=== PATIENT | female | born 1990 | race Caucasian/White ===

== ENCOUNTER 2023-02-20 16:15 | Emergency (ER) | payer OTHER, MEDICAID, SELFPAY ==
--- NOTE | ~2023-02-20 | CT_ITS ---
EXAMINATION: CT cervical spine wo con DATE: 02/20/2023 17:40 INDICATION: neck pain TECHNIQUE: Computed tomography (CT) of the cervical spine was performed without intravenous contrast. Automated exposure control and iterative reconstruction technique were employed. The dose-length pro duct was 506.58 mGy-cm. COMPARISON: None. FINDINGS: Vertebral Body Alignment: Intact. Cervical straightening as can occur with positioning and muscle spa sm. Craniocervical and atlantoaxial alignment: Mild degenerative change. Alignment intact. Osseous structures/fracture: No evidence of a lytic or blastic process in the visualized spine. No e vidence of acute fracture. Cervical soft tissues: The paraspinal soft tissues planes are maintained. Degenerative changes: Mild degenerative changes, without severe neural foraminal or central canal arley rowing. IMPRESSION: No acute fracture or traumatic malalignment in the cervical spine. Reviewed, dictated and finalized at location K.
[2023-02-20 16:17] VITALS: BP 150/91; PULSE 92; RESP 18; TEMP 36.4; O2SAT 100
--- NOTE | 2023-02-20 18:08 | ED.GENADULT ---
HPI - General Adult General Chief complaint: Neck Pain/Injury Stated complaint: neck pain Time Seen by Provider: 02/20/23 16:52 Source: patient Mode of arrival: ambulatory Limitations: no limitations History of Present Illness HPI narrative: This is a 32-year-old female who presents to the ED with chief complaint of left-sided neck pain ongoing for the past week. States it is much worse today. She has been seen by the ER and primary care previously and had no relief with ibuprofen, Toradol, Tylenol or muscle relaxers. States she is here today because she just wants some relief. States it starts in the left occiput and radiates down into the left trapezius distribution. Denies any injuries. 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 Denies any numbness or weakness, fevers, chills, sore throat. Related Data Allergies Allergy/AdvReac Type Severity Reaction Status Date / Time No Known Allergies Allergy Verified 06/03/18 07:33 [facility] Social History Social History Smoking status: Current every day smoker Alcohol intake: current Exam Narrative: GENERAL: Well-appearing, well-nourished, and in no acute distress. HEAD: Normocephalic, atraumatic. EYES: PERRLA and EOMI. ENT: Nares clear, no rhinorrhea or epistaxis. Mucous membranes moist. Oropharynx without tonsillar hypertrophy exudate or other lesions. NECK: Supple. No adenopathy or masses. CHEST: No respiratory distress. Clear to auscultation. No wheezes rales or rhonchi HEART: Regular rate and rhythm. No murmur heard. Normal peripheral pulses. ABDOMEN: Soft, nontender, nondistended, normal active bowel sounds. MSK: Mild left-sided paraspinal tenderness to the cervical spine and left trapezius distribution. MSK exam is otherwise benign. Normal range of motion. No edema. SKIN: Warm, dry, no rash. NEURO: Alert and oriented x3. No focal deficits. 5 out of 5 strength and sensation in the bilateral upper extremities. PSYCH: Normal mood and affect. Course Vital Signs Vital signs: Vital Signs Temperature 97.6 F 02/20/23 16:17 Pulse Rate 92 02/20/23 16:17 Respiratory Rate 18 02/20/23 16:17 Blood Pressure 150/91 H 02/20/23 16:17 Pulse Oximetry 100 06/20/23 16:17 Oxygen Delivery Room Air 02/20/23 16:17 Temperature 98.0 F 02/20/23 19:11 Pulse Rate 78 02/20/23 19:11 Respiratory Rate 16 02/20/23 19:11 Blood Pressure 136/78 02/20/23 19:11 Pulse Oximetry 100 02/20/23 19:11 Oxygen Delivery Room Air 02/20/23 16:17 Medical Decision Making MDM Narrative Medical decision making narrative: This is a 32-year-old female who presents to the ED with chief complaint of left-sided neck pain ongoing for greater than a week. Vitals are normal. Exam is overall benign. She does have left-sided paraspinal tenderness and tenderness throughout the entire upper trapezius distribution. Her symptoms certainly seem to be musculoskeletal. CT was ordered and does not show any acute findings. She has failed multiple dlop-rbo-mpybujb treatments so I am adding a steroid prescription today. She improved moderately with Toradol Compazine and Benadryl. She will be discharged in stable condition. Return precautions given and supportive measures for home discussed. Patient is understanding and agreeable with plan for discharge and follow-up with her PCP. She also has physical therapy set up for this problem as well. Vital Signs Vital Signs: Vital Signs Temperature 97.6 F 02/20/23 16:17 Pulse Rate 92 02/20/23 16:17 Respiratory Rate 18 02/20/23 16:17 Blood Pressure 150/91 H 02/20/23 16:17 Pulse Oximetry 100 02/20/23 16:17 Oxygen Delivery Room Air 02/20/23 16:17 Temperature 98.0 F 02/20/23 19:11 Pulse Rate 78 02/20/23 19:11 Respiratory Rate 16 02/20/23 19:11 Blood Pressure 136/78 02/20/23 19:11 Pulse Oximetry 100 02/20/23 19:11 Oxygen Delivery Room Air 02/20/23 16:17
[2023-02-20 18:11] VITALS: BP 142/86; PULSE 80; RESP 16; TEMP 36.8; O2SAT 100
[2023-02-20] MEDS: KETOROLAC 15 MG/ML VIAL (*BKC) IV PUSH (18:31)
[2023-02-20] MEDS: diphenhydrAMINE HCl INJ 50 MG/ML VIAL 25 MG IV PUSH (18:31)
[2023-02-20] MEDS: PROCHLORPERAZINE EDISYLATE 10 MG/2 ML VIAL IV PUSH (18:31)
[2023-02-20 19:11] VITALS: BP 136/78; PULSE 78; RESP 16; TEMP 36.7; O2SAT 100
== END 2023-02-20 19:40 | disposition home or self-care (01) ==
PROVIDERS: Emergency Provider Physician Assistant; PCP Student in an Organized Health Care Education/Training Program
DX: S16.1XXA Strain of muscle, fascia and tendon at neck level, initial encounter (principal); F17.200 Nicotine dependence, unspecified, uncomplicated; X58.XXXA Exposure to other specified factors, initial encounter
CPT/HCPCS: 72125; 96374; 96375; 99284; J0780; J1200; J1885

== ENCOUNTER 2023-06-02 10:35 | Emergency (ER) | payer OTHER, SELFPAY ==
[2023-06-02 10:47] VITALS: BP 135/87; PULSE 72; RESP 16; TEMP 36.4; O2SAT 98
--- NOTE | 2023-06-02 11:27 | ED.URI ---
HPI - URI/Sore Throat General Chief Complaint: Ear Stated Complaint: Ear pain Time Seen by Provider: 06/02/23 11:27 Source: patient, RN notes reviewed and old records reviewed Mode of arrival: ambulatory Limitations: no limitations History of Present Illness HPI Narrative: 32-year-old female presents to the [facility] with complaints of right ear pain. States that she has drainage normally out of the ear. States she had tubes placed approximately [address] Segura Patient states that she takes Flonase daily, Beth Drew Reports pressure. Related Data Home Medications Medication Instructions Recorded Confirmed fenofibrate nanocrystallized 145 145 mg PO DAILY 06/02/23 06/02/23 mg tablet metformin 500 mg tablet 500 mg PO DIRECTED 06/02/23 06/02/23 sertraline 100 mg tablet 50 mg PO DAILY 06/02/23 06/02/23 Allergies Allergy/AdvReac Type Severity Reaction Status Date / Time No Known Allergies Allergy Verified 06/03/18 07:33 Review of Systems Review of Systems: All systems reviewed & are unremarkable except as noted in HPI and below Constitutional: Constitutional: Reports no additional constitutional complaints Eyes: Eyes: Reports no additional eye complaints ENT: Reports as per HPI Cardiovascular: Cardiovascular: Reports no additional cardiovascular complaints, Denies chest pain and Denies dyspnea Respiratory: Respiratory: Reports no additional respiratory complaints, Denies chest congestion, Denies cough and Denies dyspnea Gastrointestinal: Gastrointestinal: Reports no additional gastrointestinal complaints, Denies abdominal pain, Denies nausea and Denies vomiting Musculoskeletal: Musculoskeletal: Reports no additional musculoskeletal complaints Integumentary/Breasts: Skin/Breast: Reports system reviewed and no additional complaints, except as docu Neurologic: Reports system reviewed and no additional complaints, except as documented Psychiatric: Psychiatric: Reports no additional psychiatric complaints Allergic/Immunologic: Allergic/Immunologic: Reports no additional allergic/immunologic complaints PMFSH Past Medical History Medical History (Updated 06/02/23 @ 20:03 by Sabi Hensley APRN) Anxiety and depression Body mass index [BMI] 37.0-37.9, adult (08/07/17) Cubital tunnel syndrome on left Ganglion cyst High cholesterol Surgical History Surgical History (Updated 06/02/23 @ 20:03 by Sabi Hensley APRN) History of breast augmentation Social History Social History (Reviewed 09/30/23 @ 20:02 by YAQUELIN Cintron Smoking status: Current every day smoker Alcohol intake: current Comments At the time of my signature, I reviewed and agree with the nursing past medical, surgical, social, and family history. There is no relevant family history pertinent to the patient complaint. Exam Const: General: cooperative, healthy appearing, comfortable, no acute distress, well developed, alert and well nourished Nutritional Appearance: well nourished and obese Orientation/consciousness: patient oriented x3 Limitations: no limitations HENMT: Head: normal to inspection Ears: hearing grossly normal bilaterally, external ears normal, TM normal on the left, Abnormal EAC present erythema, EAC tenderness on the right and otic discharge purulent on the right and TM abnormal (Partial upper TM for visualized, no erythema. Unsure of tube or perforatio) Face/Nose/Sinus: Normal external nose present, Normal nares present, Normal nasal mucous membranes and turbinates present, normal facial exam and face symmetric Face and sinus: normal facial exam and face symmetric Mouth: Yes Normal oral and palatal mucosa present, Yes lip normal and Yes moist mucous membranes Throat: posterior oropharynx normal and uvula midline Eyes: General: appearance normal, both eyes and all related structures Alignment and Position: alignment normal Periorbital: periorbital findings normal Pupils: Equal, round and re
== END 2023-06-02 11:52 | disposition home or self-care (01) ==
PROVIDERS: Emergency Provider Nurse Practitioner
DX: H60.501 Unspecified acute noninfective otitis externa, right ear (principal); F17.200 Nicotine dependence, unspecified, uncomplicated; Z79.84 Long term (current) use of oral hypoglycemic drugs; Z79.899 Other long term (current) drug therapy
CPT/HCPCS: 99213; G0463

== ENCOUNTER 2023-11-18 08:33 | Emergency (ER) | payer OTHER, BC, MEDICAID, SELFPAY ==
[2023-11-18 08:49] VITALS: BP 119/79; PULSE 93; RESP 16; TEMP 36.8; O2SAT 99
--- NOTE | 2023-11-18 09:13 | ED.URI ---
HPI - URI/Sore Throat General Chief Complaint: Upper Respiratory Infection Stated Complaint: Sinus Infection Symptoms Time Seen by Provider: 11/18/23 09:13 Source: patient Mode of arrival: ambulatory Limitations: no limitations History of Present Illness HPI Narrative: 33-year-old female presents complaint of sinus congestion, sinus pressure, postnasal drainage, coughing, right ear pain and low-grade fever the past 4 days. Patient reports that she has had off and on sinus congestion for the past 3-4 weeks. Saw her primary care physician and was given a Z-Blair and prednisone. Reports that she felt better for a short period of time before symptoms started again. Is currently not taking any psze-kat-drszgar medications to treat her symptoms. All systems reviewed and negative except as noted above. Related Data Home Medications Medication Instructions Recorded Confirmed fenofibrate nanocrystallized 145 145 mg PO DAILY 06/02/23 11/18/23 mg tablet sertraline 100 mg tablet 100 mg PO DAILY 06/02/23 11/18/23 bupropion HCl 300 mg 24 hr tablet, 300 mg PO DIRECTED 11/18/23 11/18/23 extended release Allergies Allergy/AdvReac Type Severity Reaction Status Date / Time No Known Allergies Allergy Verified 11/18/23 09:01 Review of Systems Review of Systems: CONSTITUTIONAL: Denies fever, chills, or sweats. Reports fatigue. EYES: Denies visual changes, redness, or discharge. ENT: Reports rhinorrhea, congestion, sinus pressure, right ear pain. Denies sore throat CARDIOVASCULAR: Denies chest pain, palpitations, or edema. RESPIRATORY: Reports cough. Denies dyspnea. GASTROINTESTINAL: Denies abdominal pain, nausea, vomiting, or diarrhea. GENITOURINARY: Denies dysuria or hematuria. SKIN: Denies rash or itching. MUSCULOSKELETAL: Denies back pain, joint pain, or myalgia. NEUROLOGIC: Denies headache, numbness, or weakness. PSYCHIATRIC: Denies anxiety or depression. All other systems reviewed are negative, except as documented in HPI. [facility] Past Medical History Medical History Anxiety and depression Body mass index [BMI] 37.0-37.9, adult (08/07/17) Cubital tunnel syndrome on left Ganglion cyst High cholesterol Surgical History Surgical History History of breast augmentation Social History Social History Smoking status: Current every day smoker Alcohol intake: current Comments At time of signature, agree with nursing past medical, surgical, social and family history. There is no relevant family history pertinent to the presenting complaint. Exam Narrative: GENERAL: This is a well-nourished, well-developed patient, in no apparent distress. HEAD: normocephalic, atraumatic. EYES: PERRL. Sclera clear/white. Vision is grossly intact. EARS: External ears normal, auditory canals clear and without drainage, clear fluid to left TM. Right TM is erythematous with dull light reflex. No perforation bilaterally. hearing grossly intact. NOSE: External nose normal with no obvious nasal discharge, nares without redness, no rhinorrhea. Moderate congestion. Bilateral maxillary sinus tenderness on palpation. THROAT: Mucous membranes moist, erythema with postnasal drainage. NECK: Neck supple, non-tender without lymphadenopathy, masses or thyromegaly. CARDIOVASCULAR: Regular rate and rhythm without murmurs, gallops, or rubs. RESPIRATORY: Clear to auscultation. Breath sounds equal bilaterally. No wheezes, rales, or rhonchi. SKIN: warm, Dry, intact with no suspicious lesions or rash, good texture and turgor. NEURO: awake, alert, and oriented to person, place and time. There were no obvious focal neurologic abnormalities. EXTREMITIES: No joint tenderness, effusion, or edema noted. Course Course Level of Care: Express Care Visit Vital Signs Vital
== END 2023-11-18 09:23 | disposition home or self-care (01) ==
PROVIDERS: Emergency Provider Nurse Practitioner Family; PCP Family Medicine
DX: J06.9 Acute upper respiratory infection, unspecified (principal); R05.9 Cough, unspecified; H66.91 Otitis media, unspecified, right ear; F17.200 Nicotine dependence, unspecified, uncomplicated; E78.00 Pure hypercholesterolemia, unspecified; F41.9 Anxiety disorder, unspecified; F32.A Depression, unspecified
CPT/HCPCS: 99213; G0463

== ENCOUNTER 2024-04-11 15:01 | Outpatient (CLI) | payer OTHER, MEDICAID, SELFPAY ==
--- NOTE | ~2024-04-11 | CT_ITS ---
EXAMINATION: CT abdomen pelvis w con DATE: 04/11/2024 15:26 INDICATION: Left lower quadrant abdominal pain. TECHNIQUE: Computed tomography (CT) of the abdomen and pelvis was performed with 100 mL Omnipaque 350 intravenous contrast. Automated exposure control and iterative reconstruction technique were employe d. The dose-length product was 1521.40 mGy-cm. COMPARISON: CT abdomen and pelvis 03/17/2016 FINDINGS: The visualized portions of the lung bases demonstrate mild atelectasis. No pleural effusion . The heart size is normal. No pericardial effusion. Partially visualized is a left breast implant. T he liver, gallbladder, spleen, pancreas, adrenal glands, and kidneys are normal. There are no dilated loops of bowel. The appendix is normal. There is fat stranding around epiploic appendage of the sigm oid colon, consistent with epiploic appendagitis. There are no pathologically enlarged lymph nodes. T here is physiologic fluid in the pelvis. There is moderate thoracic spondylosis and mild lumbar spond ylosis. IMPRESSION: 1. Epiploic appendagitis of the sigmoid colon. Reviewed, dictated and finalized at location A.
== END 2024-04-11 15:02 | disposition home or self-care (01) ==
LOC: ANHIMG 15:02
PROVIDERS: PCP Family Medicine; Visit Provider Surgery
DX: R10.32 Left lower quadrant pain (principal); K63.89 Other specified diseases of intestine
CPT/HCPCS: 74177; Q9967

== ENCOUNTER 2024-07-22 15:33 | Emergency (ER) | payer OTHER, MEDICAID, SELFPAY ==
[2024-07-22 15:42] VITALS: BP 133/87; PULSE 87; RESP 15; TEMP 36.4; O2SAT 98
--- NOTE | 2024-07-22 15:48 | ED.URI ---
HPI - URI/Sore Throat General Chief Complaint: Upper Respiratory Infection Stated Complaint: Sinus Infection Symptoms Time Seen by Provider: 07/22/24 15:45 Source: patient and RN notes reviewed Mode of arrival: ambulatory Limitations: no limitations History of Present Illness HPI Narrative: 34-year-old female presents with concern for sinus inflammation, pressure, pain, ear pain. Reports history of your infections, she had tympanostomy to up until recently when it was taken out. She denies fevers or drainage from the ear MD elicited complaint: nasal congestion and other (ear pain) Related Data Allergies Allergy/AdvReac Type Severity Reaction Status Date / Time No Known Allergies Allergy Verified 07/22/24 15:41 Review of Systems Review of Systems: CONSTITUTIONAL: Denies malaise, chills, sweats, or fever. EYES: Denies visual changes, redness, or discharge. ENT: Reports rhinorrhea, congestion, sinus pain, otalgia CARDIOVASCULAR: Denies chest pain, palpitations, or edema. RESPIRATORY: Denies cough. Denies dyspnea. GASTROINTESTINAL: Denies abdominal pain, nausea, vomiting, diarrhea SKIN: Denies rash or itching. MUSCULOSKELETAL: Denies myalgia. NEUROLOGIC: Denies headache. 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 H/O breast implant (~2007) History of breast augmentation History of gynecological procedure (03/02/14) mirena iud removal History of gynecological procedure (01/09/13) mirena iud insertion History of orthopedic surgery (~2007) right ankle History of robot-assisted laparoscopic hysterectomy (06/03/18) RATLH ; Menometrorrhagia , dysmenorrhea ,Enlarged Family History Family History Grandparent Breast cancer Maternal grandmother Mother Hypertension Social History Social History Smoking status: Current some day smoker Tobacco type: cigarettes Second hand tobacco smoke exposure: Yes Alcohol intake: current Alcohol use details: social 10 a month Substance use: never Substance use type: does not use Do You Feel Safe in your Home?: Yes Living arrangements: with family Additional living arrangements comments: Occupation/Education: occupation 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 There is no relevant family history pertinent to the presenting complaint Exam Narrative: GENERAL: Well-appearing, well-nourished, and in no acute distress. HEAD: Normocephalic EYES: PERRLA, conjunctivae clear ENT: Nares clear, turbinates edematous and erythematous, clear discharge. Mucous membranes moist. TM [place] with dull light reflex on the right, erythematous and slightly bulging on the left; no tragal tenderness. Oropharynx not erythematous without lesions. Tonsils not enlarged and without exudate, no drooling, no hoarseness, no trismus, uvula midline. NECK: Supple. No lymphadenopathy CHEST: Clear to auscultation, breath sounds equal. No wheezing, rhonchi, rales, or stridor. No respiratory distress, speaks in full sentences. HEART: Regular rate and rhythm. No murmur heard. SKIN: Warm, dry, no rash. NEURO: Alert and oriented x3. PSYCH: Normal mood and affect Course Course Emergency Course: Patient is aware of diagnosis, understands and agrees to treatment plan. Anticipatory guidance given. Patient agrees to follow-up as directed and is aware of reasons to seek care at the emergency department. Portions of this record may have been created with voice recognition software Level of Care: Express Care Visit Vital Signs Vital signs: Vital Signs Temperature 97.5 F L 07/22/24 15:42 Pulse Rate 87 07/22/24 15:42 Respiratory Rate 15 07/22/24 15:42 Blood Pressure 133/87 07/22/24 15:42 Pulse Oximetry 98 07/22/24 15:42 Oxygen Delivery Room Air 07/22/24 15:42 Temperature 97.5 F L 07/22/24 15:42 Pulse Rate 87 07/22/24 15:42 Respiratory Rate 15 07/22/24 15:42 Blood Pressure 133/87 07/22/24 15:42 Pulse Oximetry 98 07/22/24 15:42 Oxygen Delivery Room Air 07/22/24 15:42 Reviewed. MDM - URI/Sore Throat MDM Narrative Medical decision making narrative: Differential diagnosis considered: Vivar virus, strep pharyngitis, allergic rhinitis, upper respiratory tract infection, sinusitis, rhinosinusitis, nasopharyngitis. viral pharyngitis, otitis media, otitis externa, pneumonia, bronchitis, viral cough syndrome, viral syndrome, and influenza. Exam findings show no acute concerns or changes; patient is non-toxic appearing and is in no distress. Patient is appropriate for outpatient treatment and follow-up. Lab Data Attestation: I reviewed the patient's lab results. Critical Care Time Critical Care Time Critical Care Time: No Discharge Plan Discharge Clinical Impression: Otitis media Patient Disposition: Home, Self-Care Condition: Stable Instructions: Antibiotic Form, Ear Infection (ED) Additional Instructions: Take steroid as directed. If your symptoms worsen or do not improve you can start the antibiotic in 2-3 days. Recommend antihistamine such as Benadryl at night time and Zyrtec or Xin during the day until symptoms improve Flonase nasal spray, 2 sprays in each nostril once daily until symptoms improve Also, recommend symptomatic treatment includes: rest, fluids, and increase humidity of the air at home. Recommend Acetaminophen as directed on the bottle to reduce fever, pain Please schedule a follow-up visit with your personal physician for further evaluation and treatment within 3-5days. If your symptoms persist, change or worsen significantly before you can contact your personal physician then please, without delay, go to the emergency department for further evaluation. Prescriptions: New amoxicillin 875 mg tablet 875 mg PO Q12H 10 Days Qty: 20 0RF methylprednisolone [Medrol (Blair)] 4 mg tablets,dose pack See Rx Instructions .ROUTE .COMPLEX Qty: 21 0RF Rx Instructions: orally per package directions Follow-up/Referrals: PHYSICIAN,COMMERCIAL KITCHEN SERVICE TECHNICIAN [Primary Care Provider] - Stand Alone Forms: Work/School Release IP Time of Disposition: 15:54
[2024-07-22 15:54] VITALS: BP 133/87; PULSE 87; RESP 15; TEMP 36.4; O2SAT 98
== END 2024-07-22 15:56 | disposition home or self-care (01) ==
PROVIDERS: Emergency Provider Nurse Practitioner
DX: H66.92 Otitis media, unspecified, left ear (principal); F17.210 Nicotine dependence, cigarettes, uncomplicated; I10 Essential (primary) hypertension; E78.00 Pure hypercholesterolemia, unspecified; N80.9 Endometriosis, unspecified
CPT/HCPCS: 99213; G0463